=== PATIENT | male | born 2000 | race Hispanic/Latino ===

== ENCOUNTER 2021-12-10 11:39 | Emergency (ER) | payer OTHER, SELFPAY ==
[2021-12-10 11:41] VITALS: BP 138/78; PULSE 62; RESP 14; TEMP 36.3; O2SAT 98; BMI 30.4
--- NOTE | 2021-12-10 11:58 | EDS_ITS ---
HPI History of Present Illness Chief Complaint: Abd Pain Narrative Narrative: Patient presents with about 1 week history of abdominal pain, it is intermittent it is crampy and it is diffuse throughout. He does have pain right before he has a bowel movement and improves with a bowel movement. No fever or chills. No urinary symptoms. No back pain. PFSH PFSH Medical History no medical history Home Medications polyethylene glycol 3350 17 gram/dose oral powder (Miralax) 34 g PO TID #238 grams 12/10/21 [Rx Last Taken Unknown] Allergy/AdvReac Type Severity Reaction Status Date / Time No Known Allergies Allergy Verified 12/10/21 11:40 Family History no significant family his Surgical History no surgical history Social History Smoking Status: Unknown if ever smoked ROS ROS ED ROS Narrative Past medical history: None Medications: None Social history: Noncontributory Review of systems: All systems negative except as indicated General: No fever Eyes: No visual changes ENT: No upper airway congestion, normal voice Neck: No neck pain Cardiovascular: No chest pain Respiratory: No shortness of breath or cough Gastrointestinal: As in HPI Genitourinary: No dysuria Musculoskeletal: Denies myalgias no difficulty with ambulation Skin: No rash Neurological: No memory loss, confusion or any focal weakness Psych: No recent behavioral changes Hematologic: No easy bleeding or easy bruising EXAM Physical Exam Narrative Exam Narrative: Physical exam General: Well nourished, Well developed, No Acute Distress Head: Normocephalic, Atraumatic Eyes: Conjunctiva not pale ENT: Moist mucous membranes Neck: Supple, Nontender, No lymphadenopathy Cardiovascular: Regular rate, Regular rhythm Respiratory: No distress, CTA bilaterally Abdomen: Soft, very mild diffuse abdominal pain this is only with deep palpation, no guarding or rebound the pain is throughout the abdomen, the abdomen is quite benign. Back: Nontender, Normal Inspection. Negative for: CVA tenderness Extremities: Nontender, No edema Skin: Normal color, No rash Neurological: Alert, Normal Strength, Normal Sensation Psychological: Normal affect Const Vital Signs: 12/10/21 11:41 Temperature 97.3 F L Temperature Source Temporal Pulse Rate 62 Respiratory Rate 14 Blood Pressure 138/78 H Blood Pressure Mean 98 Pulse Ox 98 Oxygen Delivery Method Room Air MDM MDM MDM Narrative Medical decision making narrative: Patient is found to be constipated, I will treat him as such. This makes sense with his clinical history and exam. Radiography Diagnostic Testing: KUB read by me shows constipation with an otherwise normal bowel pattern Discharge Plan Triage Chief Complaint: Abd Pain ED Provider: Ron Eng Dx/Rx/DC Orders Clinical Impression: Abdominal pain, Constipation Instructions: Treating Constipation Prescriptions: New polyethylene glycol 3350 [Miralax] 17 gram/dose powder 34 g PO TID Qty: 238 0RF Referrals: Nabil,DO Cara [Med Staff - [facility]] - 3-5 Days Disposition Disposition: Home, Self Care
--- NOTE | 2021-12-10 12:03 | RAD_ITS ---
STUDY: X-RAY - ABDOMEN/PELVIS REASON FOR EXAM: Male, 20 years old. Abd pain TECHNIQUE: Single AP view of the abdomen / pelvis. COMPARISON: None. FINDINGS: Normal visualized lung bases. There is an abundance of fecal material throughout the colon. The visualized liver, spleen and kidneys are grossly normal in size and morphology. Normal soft tissue structures. Normal visualized osseous structures. RAD/Abdomen Single View IMPRESSION: Large amount of fecal material is seen in the colon. Electronically Signed: Booker James MD at 12:28 EDT ,
== END 2021-12-10 12:45 | disposition home or self-care (01) ==
LOC: ED 12:43
PROVIDERS: Emergency Provider Emergency Medicine; Visit Provider Emergency Medicine
DX: R10.9 Unspecified abdominal pain (principal); K59.00 Constipation, unspecified
CPT/HCPCS: 74018; 99282